=== PATIENT | male | born 1960 | race Caucasian/White ===

== ENCOUNTER 2024-10-15 21:01 | Emergency (ER) | payer MEDICARE, SELFPAY ==
[2024-10-15 21:03] VITALS: BP 116/50; PULSE 67; RESP 16; TEMP 36.2; O2SAT 98; BMI 19.8
--- NOTE | 2024-10-15 21:09 | EX.ED.DYSGE1 ---
HPI History of Present Illness Chief Complaint: Unresponsive PFSH PFSH Allergy/AdvReac Type Severity Reaction Status Date / Time No Known Allergies Allergy Verified 10/15/24 21:02 Social History Smoking Status: Current every day smoker tobacco type: cigarettes EXAM Physical Exam Const Vital Signs: 10/15/24 21:03 10/15/24 21:08 Temperature 97.1 F L Temperature Source Oral Pulse Rate 67 Respiratory Rate 16 Respiratory Pattern Normal Blood Pressure 116/50 L Blood Pressure Mean 72 Pulse Ox 98 Oxygen Delivery Method Room Air [facility] Narrative Medical decision making narrative: HISTORY OF PRESENT ILLNESS: 62-year-old male presents with concern for being unresponsive. Notes he was found unresponsive in the neighborhood. Per police there is fentanyl and methamphetamine paraphernalia found with the patient. The patient states he used a little bit of fentanyl methamphetamine just prior to arrival. Per EMS patient received Narcan with complete return to consciousness. Patient denies IV drug use. Notes he smokes narcotics. REVIEW OF SYSTEMS: Pertinent positives: Drug use Pertinent negatives: Chest pain, fever, back pain PHYSICAL EXAM: Nursing triage notes reviewed, Vital signs reviewed Constitutional: please see mdm HENT: MMM Eyes: Pupils equal round and reactive to light, Extraocular muscles intact Neck: No stridor, no JVD, full neck ROM Lungs: Clear to auscultation, No wheezing or rales. No increased work of breathing, no conversational dyspnea, no accessory muscle use, no nasal flaring. No respiratory distress noted Heart: Regular rate and rhythm, No murmurs, No rubs and No gallops, 2+ distal pulses (radial, femoral, posterior tibial) in all extremities Abdomen: Soft, there is no tenderness, rigidity, rebound or guarding, no obvious peritoneal signs, no palpable pulsatile abdominal masses, no auscultated abdominal bruit : No CVAT Extremities: No edema Neuro: No new focal neurological deficits, cranial nerves II through XII intact, 5/5 strength in all present extremities. Intact sensation to light touch in all present extremities, 2+ reflexes bilateral patella tendons. Patient ambulated with a stable non-ataxic gait. Skin: No rash or lesions noted right MEDICAL DECISION MAKING: Chief Complaint: Opiate overdose External records reviewed: Reviewed prior allergies, problem list, medications Factors affecting care: none Social determinants of health: none History obtained from others: none Consults: none [facility] Narrative: Patient was initially hemodynamically stable, afebrile and nontoxic-appearing. Exam benign. Patient was observed for approximately 90 minutes after receiving Narcan with no significant signs of rebound opiate overdose. Patient was clinically sober. He was able to ambulate with a non-ataxic gait. At this time the patient was alert and orient x 3 requested to be discharged. Patient was discharged in stable condition. The patient and/or family, caregivers express understanding. The patient and/or family, caregivers agrees with the plan. Shared decision making: I will have a discussion with the patient and or visitors regarding risk/benefits of further testing or admission. They will be made aware of of the risk/benefits inherent in this decision they will be given the opportunity to voice understanding. Total critical care time today provided was at least 0 minutes. This excludes separately billable procedures. Critical care time (if documented) is secondary to the patient having high probability of clinically significant/life threatening deterioration in the patient's condition which required my urgent intervention. Impression: 1. Opiate overdose Dispo: Discharge home This note was generated with [employer] dictation software. It may contain incorrect words, spelling, and punctuation that were not noted in review of the chart prior to signing. Discharge Plan Triage Chief Complaint: Unresponsive ED Provider: Geronimo Tillman Dx/Rx/DC Orders Clinical Impression: Opioid overdose Primary Care Provider: Loretta Eng Referrals: Loretta Eng MD [Primary Care Provider] - Activity Restrictions/Additional Instructions: Thank you for trusting us with your care today! Please refrain from using drugs. Please take Tylenol (2 pills, 650 mg), ibuprofen (2 pills, 400 mg) every 6 hours as needed for pain and fever control. Please return to the emergency department if your symptoms change or worsen. Please follow with your primary care physician for further outpatient evaluation and management. Print Language: Moroccan Disposition Disposition: Home, Self Care Discharge Date/Time: 10/15/24 22:14
[2024-10-15] MEDS: Acetaminophen 325 MG Tablet PO (21:32)
[2024-10-15] MEDS: Ondansetron ODT 4 MG Tablet PO (21:33)
--- NOTE | 2024-10-15 22:07 | ED.RN ---
pt continually ripping off monitor devices and when staff attempts to replace pt continues to thrash in bed refusing to keep them in place. pt safely ambulates to bathroom and states discomfort of being here. when pt told he needs to call a ride to be picked up, pt states he has no one to call and you have to find me a ride home. this rn tells patient that unfortunately it is not the responsibility of nursing to find the patient a ride. this rn listed off options to the pt such as a family member, a friend, a neighbor, or a taxi.
== END 2024-10-15 22:14 | disposition home or self-care (01) ==
PROVIDERS: Emergency Provider Emergency Medicine; PCP Internal Medicine; Visit Provider Emergency Medicine
DX: T40.2X1A Poisoning by other opioids, accidental (unintentional), initial encounter (principal); F17.210 Nicotine dependence, cigarettes, uncomplicated
CPT/HCPCS: 99285